=== PATIENT | male | born 1940 ===

== ENCOUNTER 2022-03-11 15:27 | Inpatient (IN) | payer MEDICARE, BC ==
[2022-03-11] MEDS ORDERED: HYDROmorphone 0.5 MG/0.5 ML Syringe IVPUSH ONE ×2 (16:15→19:52)
[2022-03-11] MEDS ORDERED: Metoclopramide 10 MG/2 ML SDV IVPUSH ONE ×2 (16:15→19:52)
[2022-03-11] MEDS ORDERED: Dextrose 5%-0.9% NaCl 1,000 ML IV SCH (16:15)
[2022-03-11] MEDS ORDERED: Iopamidol 612 MG/ML 100 ML Bottle IVPUSH ONE (17:58)
[2022-03-11] MEDS ORDERED: Levofloxacin/Dextrose 5%-Water 750 MG in Premix Bag 1 BAG IV ONE (18:12)
[2022-03-11] MEDS ORDERED: Ondansetron 4 MG Tab.DIS PO PRN (18:27)
[2022-03-11] MEDS ORDERED: Acetaminophen 325 MG Tab PO PRN (18:27)
[2022-03-11] MEDS ORDERED: Docusate Sodium 100 MG Cap PO PRN (18:27)
[2022-03-11] MEDS ORDERED: metroNIDAZOLE/Normal Saline 500 MG in Premix Bag 1 BAG IV ONE (18:29)
[2022-03-11] MEDS: Levofloxacin/Dextrose 5%-Water 500 MG in Premix Bag 1 BAG IV SCH (18:55)
[2022-03-11] MEDS: metroNIDAZOLE/Normal Saline 500 MG in Premix Bag 1 BAG IV SCH (18:56)
[2022-03-11] MEDS ORDERED: Acetaminophen 325 MG Tab PO ONE (19:51)
[2022-03-11] MEDS: Sodium Chloride 0.9% 1,000 ML IV SCH (21:45)
[2022-03-12] MEDS: metroNIDAZOLE/Normal Saline 500 MG in Premix Bag 1 BAG IV SCH ×3 (01:57→17:42)
[2022-03-12] MEDS: oxyCODONE 5 MG Tab PO PRN ×4 (01:57→21:23)
[2022-03-12] MEDS: Enoxaparin 40 MG/0.4 ML Syringe SUBCUT SCH (08:23)
[2022-03-12] MEDS: Albuterol 0.083% 2.5 MG/3 ML Neb Soln NEB PRN ×2 (08:36→15:53)
[2022-03-12] MEDS: Sodium Chloride 0.9% 1,000 ML IV SCH (16:21)
[2022-03-12] MEDS: Levofloxacin/Dextrose 5%-Water 500 MG in Premix Bag 1 BAG IV SCH (18:21)
[2022-03-13] MEDS: metroNIDAZOLE/Normal Saline 500 MG in Premix Bag 1 BAG IV SCH ×3 (02:09→17:46)
[2022-03-13] MEDS ORDERED: Albuterol/Ipratropium 3.0-0.5 MG/3 ML Neb Soln NEB SCH (08:00)
[2022-03-13] MEDS: Albuterol/Ipratropium 3.0-0.5 MG/3 ML Neb Soln NEB SCH ×3 (08:25→21:16)
[2022-03-13] MEDS ORDERED: Dextrose 5%-Lact Ringers w/KCl 1,000 ML IV SCH (08:30)
[2022-03-13] MEDS: Enoxaparin 40 MG/0.4 ML Syringe SUBCUT SCH (08:55)
[2022-03-13] MEDS: oxyCODONE 5 MG Tab PO PRN (10:45)
[2022-03-13] MEDS: Levofloxacin/Dextrose 5%-Water 500 MG in Premix Bag 1 BAG IV SCH (17:46)
[2022-03-14] MEDS: metroNIDAZOLE/Normal Saline 500 MG in Premix Bag 1 BAG IV SCH ×3 (01:36→17:30)
[2022-03-14] MEDS: Albuterol/Ipratropium 3.0-0.5 MG/3 ML Neb Soln NEB SCH ×4 (03:13→20:38)
[2022-03-14] MEDS: oxyCODONE 5 MG Tab PO PRN ×2 (04:18→21:48)
[2022-03-14] MEDS: Enoxaparin 40 MG/0.4 ML Syringe SUBCUT SCH (08:13)
[2022-03-14] MEDS: Levofloxacin/Dextrose 5%-Water 500 MG in Premix Bag 1 BAG IV SCH (17:30)
[2022-03-15] MEDS: metroNIDAZOLE/Normal Saline 500 MG in Premix Bag 1 BAG IV SCH ×3 (01:43→17:49)
[2022-03-15] MEDS: Albuterol/Ipratropium 3.0-0.5 MG/3 ML Neb Soln NEB SCH ×4 (02:18→20:53)
[2022-03-15] MEDS ORDERED: oxyCODONE 5 MG Tab PO PRN (07:17)
[2022-03-15] MEDS: Enoxaparin 40 MG/0.4 ML Syringe SUBCUT SCH (09:06)
[2022-03-15] MEDS: Levofloxacin/Dextrose 5%-Water 500 MG in Premix Bag 1 BAG IV SCH (17:49)
[2022-03-16] MEDS: Albuterol/Ipratropium 3.0-0.5 MG/3 ML Neb Soln NEB SCH ×2 (03:16→08:23)
[2022-03-16] MEDS: metroNIDAZOLE/Normal Saline 500 MG in Premix Bag 1 BAG IV SCH ×3 (03:23→09:30)
[2022-03-16] MEDS: Enoxaparin 40 MG/0.4 ML Syringe SUBCUT SCH (09:25)
[2022-03-16 12:12] VITALS: BP 128/86; PULSE 74
== END 2022-03-16 12:50 | disposition home or self-care (01) | DRG 392 ==
LOC: JD.ED 15:27 → JD.MS 18:28
PROVIDERS: ADMIT Internal Medicine; ATTEND Internal Medicine
DX: K57.92 Diverticulitis of intestine, part unspecified, without perforation or abscess without bleeding (principal); K57.00 Diverticulitis of small intestine with perforation and abscess without bleeding; D72.825 Bandemia; H54.7 Unspecified visual loss; N42.9 Disorder of prostate, unspecified; Z90.89 Acquired absence of other organs; Z90.49 Acquired absence of other specified parts of digestive tract
CPT/HCPCS: 36415; 71045; 74018; 74177; 80053; 81001; 82009; 83605; 83690; 83735; 84484; 85025; 85610; 85730; 86140; 87040 ×2; 93005; 96361; 96375; 99285; J1170; J2765; J7042; 80048; 85027; 93010; 94640; 94667; 94668; 94761; 96365; 96368; 96376; 99221; A9270-GY; J1650; J1956; J3480; J3490; J7030; J7620-GY; Q9967